=== PATIENT | male | born 1965 | race Caucasian/White ===

== ENCOUNTER 2021-10-13 07:18 | Day surgery (SDC) | payer OTHER ==
[2021-10-11 09:40] VITALS: BMI 31.1
[~2021-10-13 07:18] MED LIST: LACTATED RINGERS 1,000 ML IV SCH
[2021-10-13 07:52] VITALS: RESP 16; TEMP 97.9
[2021-10-13] MEDS ORDERED: PROPOFOL 10 MG/ML 20 ML VIAL IV ONE (08:26)
--- NOTE | 2021-10-13 08:31 | P.GSHP ---
History of Present Illness H&P Date: 10/13/21 Chief Complaint: History of colon polyps This a 56-year-old male presents today for colonoscopy. Patient has. History of colon polyps. His last colonoscopy prostate 4 years ago. Past Medical History Past Medical History: GERD/Reflux, Osteoarthritis (OA), Prostate Disorder Additional Past Medical History / Comment(s): HX COLON POLYPS, BACK PAIN/SCIATICA, STATES RECENT SLIGHTLY ABNORMAL EKG AND STRESS TEST WAS NORMAL. History of Any Multi-Drug Resistant Organisms: MRSA Date of last positivie culture/infection: 15 YRS AGO -2005 MDRO Source:: NOSE-PIMPLE Past Surgical History: Tonsillectomy Additional Past Surgical History / Comment(s): COLONOSCOPY Past Anesthesia/Blood Transfusion Reactions: No Reported Reaction, Motion Sickness Past Psychological History: No Psychological Hx Reported Smoking Status: Never smoker Past Alcohol Use History: Occasional Past Drug Use History: None Reported - Past Family History Mother Family Medical History: Cancer Additional Family Medical History / Comment(s): CERVICAL CANCER WITH METS Father Family Medical History: Cancer Additional Family Medical History / Comment(s): SKIN & BONE CANCER Medications and Allergies Home Medications Medication Instructions Recorded Confirmed Type Aspirin [Adult Low Dose Aspirin EC] 81 mg PO DAILY 07/19/17 10/13/21 History Glucosamine/Chondr Ross A Sod [Osteo 1 each PO DAILY 07/19/17 10/13/21 History Bi-Flex Caplet] Multivitamin [Men's Multi-Vitamin] 1 each PO DAILY 07/19/17 10/13/21 History Calcium Carbonate [Tums] 500 mg PO DIRECTED PRN 10/11/21 10/13/21 History Ergocalciferol [Vitamin D2 (1250 50,000 unit PO WEEKLY 10/11/21 10/13/21 History Mcg = 80760 Iu)] Ibuprofen [Motrin Ib] 400 mg PO DIRECTED PRN 10/11/21 10/13/21 History [place]-3 Fatty Acids/Fish Oil [Fish 1 each PO DAILY 10/11/21 10/13/21 History Oil 1,000 mg Softgel] Allergies Allergy/AdvReac Type Severity Reaction Status Date / Time Penicillins Allergy Rash/Hives Verified 10/13/21 07:42 Sulfa (Sulfonamide Allergy Rash/Hives Verified 10/13/21 07:42 Antibiotics) atorvastatin [From Lipitor] AdvReac Severe Muscle Verified 10/13/21 07:42 Cramps Surgical - Exam Vital Signs Temp Pulse Resp BP Pulse Ox 97.9 F 81 16 137/78 96 10/13/21 07:45 10/13/21 07:45 10/13/21 07:45 10/13/21 07:45 10/13/21 07:45 - General well developed, well nourished - Eyes PERRL - ENT normal pinna - Neck no masses - Respiratory normal expansion - Cardiovascular Rhythm: regular - Abdomen Abdomen: soft Assessment and Plan Assessment: He of colon polyps. We'll perform colonoscopy.
--- NOTE | 2021-10-13 08:43 | P.OP ---
Date of Procedure: 10/13/21 Preoperative Diagnosis: History of colon polyps Postoperative Diagnosis: Diverticulosis External hemorrhoids Procedure(s) Performed: Colonoscopy Anesthesia: MAC Surgeon: Wilman Andersen Pathology: none sent Condition: stable Disposition: PACU Description of Procedure: The patient's placed on the endoscopy table in the lateral position. He received IV sedation. Digital rectal exam was performed which revealed internal/external hemorrhoids. The prostate was symmetrical without nodules. The flexible colonoscope was then placed patient anus passed throughout the entire colon. The ileocecal valve was visualized. The cecum, ascending and transverse colon appeared normal. In the descending; there was a few scattered diverticuli. Scope summer back the rectum and this appeared normal. The scope withdrawn for patient. And internal hemorrhoids are noted.
[2021-10-13 08:59] VITALS: BP 130/88; PULSE 63
== END 2021-10-13 09:18 | disposition home or self-care (01) ==
LOC: ORWHC2ENDO 07:18
PROVIDERS: ATTEND Surgery
DX: Z12.11 Encounter for screening for malignant neoplasm of colon (principal); K57.30 Diverticulosis of large intestine without perforation or abscess without bleeding; K64.8 Other hemorrhoids; K64.4 Residual hemorrhoidal skin tags; Z86.010 Personal history of colon polyps; K21.9 Gastro-esophageal reflux disease without esophagitis; M19.90 Unspecified osteoarthritis, unspecified site; N42.9 Disorder of prostate, unspecified; M54.30 Sciatica, unspecified side; Z86.14 Personal history of Methicillin resistant Staphylococcus aureus infection; Z90.89 Acquired absence of other organs; Z79.82 Long term (current) use of aspirin; Z88.0 Allergy status to penicillin; Z88.2 Allergy status to sulfonamides; Z88.8 Allergy status to other drugs, medicaments and biological substances; Z80.49 Family history of malignant neoplasm of other genital organs; Z80.8 Family history of malignant neoplasm of other organs or systems
CPT/HCPCS: J2704; G0121; 45378